=== PATIENT | female | born 1955 | race Two or more races ===

== ENCOUNTER → 2019-02-25 | Outpatient (CLI) | payer MEDICARE, OTHER, SELFPAY ==
[2019-02-28 12:06] LABS: HPV Reflexed? NOT INDICATED
== END | disposition home or self-care (01) ==
LOC: LABSPEC 02-26 10:45
PROVIDERS: Visit Provider Obstetrics & Gynecology
DX: Z12.4 Encounter for screening for malignant neoplasm of cervix (principal)
CPT/HCPCS: 87624; 88175; G0145